=== PATIENT | male | born 1940 | race Caucasian/White ===

== ENCOUNTER 2020-05-04 19:46 | Inpatient (IN) | payer MEDICARE, OTHER ==
[~2020-05-04] VITALS: Ht 170.2 cm; Wt 79.4 kg
[~2020-05-04 19:46] MED LIST: AMOX TR-K CLV1 EAC4 PO; ATORVASTATIN CA10 MG PO; BUTALB-ACETAMI1 EAC1 PO; KEPPRA 500 MG500 MG PO; LOPRESSOR 25 MG25 MG PO; MYCOSTATIN100000 UTS PO; NITRO-TIME2.5 MG PO; NORCO 5-325 TA1 EACH PO; PEPCID40 MG PO
[2020-05-04 20:16] LABS: HEMOGLOBIN 12.2 gm/dl (14.0-17.5); WHITE BLOOD COUNT 5.3 K/UL (4.5-11.0)
[2020-05-04 20:31] LABS: BUN/CREATININE RATIO 19 (0-10)
[2020-05-04] MEDS ORDERED: MYCOSTATIN100000 UTS PO (23:27)
[2020-05-05 08:28] LABS: WHITE BLOOD COUNT 4.2 K/UL (4.5-11.0)
[2020-05-05 08:33] LABS: RED BLOOD COUNT 3.17 M/UL (4.20-5.50)
[2020-05-05 08:34] LABS: HEMOGLOBIN 9.7 gm/dl (14.0-17.5)
[2020-05-05 08:53] LABS: BUN/CREATININE RATIO 18 (0-10)
[2020-05-06 06:36] LABS: BUN/CREATININE RATIO 20 (0-10)
[2020-05-06 06:40] LABS: RED BLOOD COUNT 3.02 M/UL (4.20-5.50); WHITE BLOOD COUNT 4.7 K/UL (4.5-11.0)
[2020-05-07 03:24] LABS: HEMOGLOBIN 9.4 gm/dl (14.0-17.5); RED BLOOD COUNT 2.98 M/UL (4.20-5.50)
[2020-05-07 03:45] LABS: BUN/CREATININE RATIO 21 (0-10)
[2020-05-07 18:26] LABS: BORDETELLA PARAPERTUSSIS Not Detected (Not Detectd); BORDETELLA PERTUSSIS Not Detected (Not Detectd); CHLAMYDIA PNEUMONIAE Not Detected (Not Detectd); CORONAVIRUS HKU1 Not Detected (Not Detectd); CORONAVIRUS NL63 Not Detected (Not Detectd); CORONAVIRUS OC43 Not Detected (Not Detectd); CORONOAVIRUS 229E Not Detected (Not Detectd); HUMAN METAPNEUMOVIRUS Not Detected (Not Detectd); HUMAN RHINOVIRUS/ENTEROVIRUS Not Detected (Not Detectd); INFLUENZA A Not Detected (Not Detectd); INFLUENZA B Not Detected (Not Detectd); MYCOPLASMA PNEUMONIAE Not Detected (Not Detectd); PARAINFLUENZA VIRUS 1 Not Detected (Not Detectd); PARAINFLUENZA VIRUS 2 Not Detected (Not Detectd); PARAINFLUENZA VIRUS 3 Not Detected (Not Detectd); PARAINFLUENZA VIRUS 4 Not Detected (Not Detectd); RESPIRATORY SYNCYTIAL VIRUS Not Detected (Not Detectd)
[2020-05-07 20:33] LABS: SARS-CoV-2 NOT DETECTED (Not Detectd)
[2020-05-09 04:18] LABS: HEMOGLOBIN 10.1 gm/dl (14.0-17.5)
[2020-05-09 04:19] LABS: RED BLOOD COUNT 3.36 M/UL (4.20-5.50); WHITE BLOOD COUNT 6.7 K/UL (4.5-11.0)
[2020-05-09 04:45] LABS: BUN/CREATININE RATIO 21 (0-10)
[2020-05-10 03:29] LABS: RED BLOOD COUNT 3.27 M/UL (4.20-5.50); WHITE BLOOD COUNT 7.1 K/UL (4.5-11.0)
[2020-05-10 03:53] LABS: BUN/CREATININE RATIO 23 (0-10)
[2020-05-11 03:59] LABS: HEMOGLOBIN 10.1 gm/dl (14.0-17.5); RED BLOOD COUNT 3.19 M/UL (4.20-5.50); WHITE BLOOD COUNT 6.6 K/UL (4.5-11.0)
[2020-05-11 04:23] LABS: BUN/CREATININE RATIO 21 (0-10)
[2020-05-12 01:54] LABS: HEMOGLOBIN 9.3 gm/dl (14.0-17.5); RED BLOOD COUNT 3.03 M/UL (4.20-5.50); WHITE BLOOD COUNT 6.8 K/UL (4.5-11.0)
[2020-05-12 02:12] LABS: BUN/CREATININE RATIO 21 (0-10)
[2020-05-12] MEDS ORDERED: METRONIDAZOLE250 MG PO (14:52)
[2020-05-12] MEDS ORDERED: AZITHROMYCIN250 MG PO (14:52)
[2020-05-12] MEDS ORDERED: ASPIRIN EC81 MG PO (14:52)
[2020-05-12] MEDS ORDERED: LOPRESSOR 25 MG25 MG PO (14:52)
[2020-05-12] MEDS ORDERED: NITRO-TIME2.5 MG PO (15:09)
--- NOTE | 2020-05-12 16:56 | NUR ---
1653: PATIENTS SON HAS SIGNED ALL PAPER WORK FOR ADMISSION TO [facility]. RN NOTIFIED [facility] FOR TRANSPORT TO FACILITY. PATIENTS CLOTHIG WAS FOUND AND GIVEN TO PATIENTS SON BY [employer], NEEMA.
== END 2020-05-12 18:11 | DRG 871 ==
LOC: ER1 19:46 → CDU 23:14 → MED SURG 4 23:14
PROVIDERS: Internal Medicine; Internal Medicine Infectious Disease; Physician Assistant; ADMIT Internal Medicine
DX: A41.9 Sepsis, unspecified organism (principal); J96.01 Acute respiratory failure with hypoxia; D61.818 Other pancytopenia; E87.1 Hypo-osmolality and hyponatremia; J98.11 Atelectasis; M84.68XA Pathological fracture in other disease, other site, initial encounter for fracture; Z20.822 Contact with and (suspected) exposure to COVID-19; I10 Essential (primary) hypertension; M41.9 Scoliosis, unspecified; I25.10 Atherosclerotic heart disease of native coronary artery without angina pectoris; Z20.828 Contact with and (suspected) exposure to other viral communicable diseases; E78.5 Hyperlipidemia, unspecified; K21.9 Gastro-esophageal reflux disease without esophagitis; H91.90 Unspecified hearing loss, unspecified ear; Z88.1 Allergy status to other antibiotic agents; Z88.0 Allergy status to penicillin; Z88.8 Allergy status to other drugs, medicaments and biological substances; Z87.891 Personal history of nicotine dependence; Z95.5 Presence of coronary angioplasty implant and graft; E87.6 Hypokalemia; D64.9 Anemia, unspecified; R73.9 Hyperglycemia, unspecified; D69.6 Thrombocytopenia, unspecified; M48.16 Ankylosing hyperostosis [Forestier], lumbar region; R53.81 Other malaise; M48.14 Ankylosing hyperostosis [Forestier], thoracic region
CPT/HCPCS: 36415; 51702; 70450; 71045; 71046; 72128; 72131; 80048; 80053; 81001; 82550; 82553; 82607; 82803; 82962; 83605; 83735; 83874; 83880; 84484; 85025; 85027; 86140; 87040; 87081; 87086; 87633; 93005; 96365; 97116; 97116-GP-CQ; 97162; 97530; 97530-GP-CQ; 99285; G0378; J1650; J1956; J7030; Q9967; U0002

== ENCOUNTER 2020-08-31 16:38 | Emergency (ER) | payer MEDICARE, OTHER ==
[~2020-08-31 16:38] MED LIST changes: +ASPIRIN EC81 MG PO; +AZITHROMYCIN250 MG PO; +METRONIDAZOLE250 MG PO
[2020-08-31 18:01] LABS: HEMOGLOBIN 12.4 gm/dl (14.0-17.5); RED BLOOD COUNT 3.97 M/UL (4.20-5.50); WHITE BLOOD COUNT 4.2 K/UL (4.5-11.0)
[2020-08-31 18:24] LABS: BUN/CREATININE RATIO 25 (0-10)
== END 2020-08-31 21:42 | disposition home or self-care (01) ==
LOC: ER1 16:38
PROVIDERS: Physician Assistant
DX: S32.019A Unspecified fracture of first lumbar vertebra, initial encounter for closed fracture (principal); S32.029A Unspecified fracture of second lumbar vertebra, initial encounter for closed fracture; S22.089A Unspecified fracture of T11-T12 vertebra, initial encounter for closed fracture; I11.9 Hypertensive heart disease without heart failure; W06.XXXA Fall from bed, initial encounter; Y92.009 Unspecified place in unspecified non-institutional (private) residence as the place of occurrence of the external cause
CPT/HCPCS: 72131; 80053; 82550; 82553; 85025; 99284

== ENCOUNTER 2020-09-05 13:55 | Inpatient (IN) | payer MEDICARE, OTHER ==
[~2020-09-05] VITALS: Ht 172.7 cm; Wt 72.6 kg
[2020-09-05 14:34] LABS: HEMOGLOBIN 11.4 gm/dl (14.0-17.5); RED BLOOD COUNT 3.73 M/UL (4.20-5.50); WHITE BLOOD COUNT 4.5 K/UL (4.5-11.0)
[2020-09-05 15:10] LABS: BUN/CREATININE RATIO 20 (0-10)
[2020-09-05] MEDS ORDERED: BASAGLAR K100 UNIT/1 SQ (20:03)
[2020-09-05] MEDS ORDERED: AMLODIPINE BES2.5 MG PO (20:06)
[2020-09-05] MEDS ORDERED: LOPRESSOR 25 MG25 MG PO (20:07)
[2020-09-05] MEDS ORDERED: TRAMADOL HCL50 MG PO (20:07)
[2020-09-05] MEDS ORDERED: NITRO-TIME2.5 MG PO (20:08)
[2020-09-06 02:42] LABS: WHITE BLOOD COUNT 4.8 K/UL (4.5-11.0)
[2020-09-06 02:51] LABS: RED BLOOD COUNT 3.29 M/UL (4.20-5.50)
[2020-09-06 03:04] LABS: BUN/CREATININE RATIO 21 (0-10)
[2020-09-07 03:38] LABS: HEMOGLOBIN 10.1 gm/dl (14.0-17.5); RED BLOOD COUNT 3.31 M/UL (4.20-5.50)
[2020-09-07 03:39] LABS: WHITE BLOOD COUNT 6.7 K/UL (4.5-11.0)
[2020-09-07 04:05] LABS: BUN/CREATININE RATIO 20 (0-10)
[2020-09-08 05:59] LABS: HEMOGLOBIN 9.3 gm/dl (14.0-17.5); RED BLOOD COUNT 3.13 M/UL (4.20-5.50); WHITE BLOOD COUNT 4.4 K/UL (4.5-11.0)
[2020-09-08 06:31] LABS: BUN/CREATININE RATIO 15 (0-10)
[2020-09-09 04:23] LABS: HEMOGLOBIN 8.8 gm/dl (14.0-17.5); RED BLOOD COUNT 2.9 M/UL (4.20-5.50)
[2020-09-09 04:25] LABS: BUN/CREATININE RATIO 14 (0-10)
[2020-09-10 04:33] LABS: HEMOGLOBIN 9.5 gm/dl (14.0-17.5); RED BLOOD COUNT 3.14 M/UL (4.20-5.50); WHITE BLOOD COUNT 4.8 K/UL (4.5-11.0)
[2020-09-10 05:28] LABS: BUN/CREATININE RATIO 17 (0-10)
[2020-09-14] MEDS ORDERED: TRAMADOL HCL50 MG PO (09:24)
[2020-09-14] MEDS ORDERED: DONEPEZIL HCL5 MG PO (09:24)
== END 2020-09-14 16:15 | DRG 552 ==
LOC: ER1 13:55 → CDU 18:13 → M/S 22:16
PROVIDERS: Physician Assistant Medical; Student in an Organized Health Care Education/Training Program; ADMIT Family Medicine
PROC: B24BZZZ Ultrasonography of Heart with Aorta (ICD-10-PCS; principal; 2020-09-07)
DX: S22.088A Other fracture of T11-T12 vertebra, initial encounter for closed fracture (principal); S32.028A Other fracture of second lumbar vertebra, initial encounter for closed fracture; S32.018A Other fracture of first lumbar vertebra, initial encounter for closed fracture; E87.2 Acidosis; Z91.81 History of falling; F01.50 Vascular dementia, unspecified severity, without behavioral disturbance, psychotic disturbance, mood disturbance, and anxiety; H91.90 Unspecified hearing loss, unspecified ear; E78.5 Hyperlipidemia, unspecified; I10 Essential (primary) hypertension; M51.36 Other intervertebral disc degeneration, lumbar region; M51.34 Other intervertebral disc degeneration, thoracic region; Z20.822 Contact with and (suspected) exposure to COVID-19; E11.65 Type 2 diabetes mellitus with hyperglycemia; E11.649 Type 2 diabetes mellitus with hypoglycemia without coma; R53.81 Other malaise; E86.0 Dehydration; D64.9 Anemia, unspecified; E87.6 Hypokalemia; K21.9 Gastro-esophageal reflux disease without esophagitis; I25.10 Atherosclerotic heart disease of native coronary artery without angina pectoris; Z95.5 Presence of coronary angioplasty implant and graft; Z86.011 Personal history of benign neoplasm of the brain; Z88.1 Allergy status to other antibiotic agents; Z88.0 Allergy status to penicillin; Z88.8 Allergy status to other drugs, medicaments and biological substances; Z87.891 Personal history of nicotine dependence; Z79.82 Long term (current) use of aspirin; Z79.4 Long term (current) use of insulin; Z79.899 Other long term (current) drug therapy
CPT/HCPCS: ECHO; 0240U; 36415; 70450; 71045; 72125; 72128; 72131; 72146; 72148; 80048; 80053; 81001; 82550; 82553; 82962; 83036; 83605; 83690; 83735; 83874; 83880; 84100; 84132; 84484; 85007; 85025; 85027; 85610; 85652; 85730; 86140; 93005; 93306; 96372; 97110; 97110-GP-CQ; 97116-GP-CQ; 97163; 97167; 97530-GP-CQ; 99285; G0378; J1650; J3475; Q9965; U0002

== ENCOUNTER 2020-11-23 14:32 | Emergency (ER) | payer MEDICARE, OTHER ==
[~2020-11-23 14:32] MED LIST changes: +AMLODIPINE BES2.5 MG PO; +BASAGLAR K100 UNIT/1 SQ; +DONEPEZIL HCL5 MG PO; +TRAMADOL HCL50 MG PO
[2020-11-23 17:08] LABS: HEMOGLOBIN 12.7 gm/dl (14.0-17.5); RED BLOOD COUNT 4.1 M/UL (4.20-5.50); WHITE BLOOD COUNT 6.1 K/UL (4.5-11.0)
[2020-11-23] MEDS ORDERED: ZOFRAN4 MG PO (20:04)
== END 2020-11-23 20:15 | disposition home or self-care (01) ==
LOC: ER1 14:32
PROVIDERS: Preventive Medicine Occupational Medicine
DX: E86.0 Dehydration (principal); R11.2 Nausea with vomiting, unspecified; M25.552 Pain in left hip; G89.29 Other chronic pain; I25.10 Atherosclerotic heart disease of native coronary artery without angina pectoris; I10 Essential (primary) hypertension
CPT/HCPCS: 80053; 81001; 85025; 85652; 86140; 87086; 96374; 99284; J2405; Q9967

== ENCOUNTER 2021-01-08 11:47 | Emergency (ER) | payer MEDICARE, OTHER ==
[~2021-01-08 11:47] MED LIST changes: +ZOFRAN4 MG PO
[2021-01-08 14:57] LABS: HEMOGLOBIN 9.9 gm/dl (14.0-17.5); RED BLOOD COUNT 3.62 M/UL (4.20-5.50); WHITE BLOOD COUNT 7.7 K/UL (4.5-11.0)
[2021-01-08 15:15] LABS: BUN/CREATININE RATIO 17 (0-10)
[2021-01-08] MEDS ORDERED: HYDROCODON-ACE1 EAC2 PO (16:40)
== END 2021-01-08 17:46 | disposition home or self-care (01) ==
LOC: ER1 11:47
PROVIDERS: Physician Assistant
DX: M54.5 Low back pain (principal); G89.29 Other chronic pain; M48.56XA Collapsed vertebra, not elsewhere classified, lumbar region, initial encounter for fracture; I25.10 Atherosclerotic heart disease of native coronary artery without angina pectoris; E11.9 Type 2 diabetes mellitus without complications; I10 Essential (primary) hypertension; K21.9 Gastro-esophageal reflux disease without esophagitis; Z88.0 Allergy status to penicillin; Z88.8 Allergy status to other drugs, medicaments and biological substances; Z79.82 Long term (current) use of aspirin; Z79.899 Other long term (current) drug therapy
CPT/HCPCS: 72131; 80053; 81001; 82550; 82553; 83605; 83874; 84484; 85025; 93005; 99284

== ENCOUNTER → 2021-01-22 | Outpatient (CLI) | payer MEDICARE, OTHER ==
[~2021-01-22] MED LIST changes: +HYDROCODON-ACE1 EAC2 PO
== END ==
LOC: EMI 14:00
DX: R93.0 Abnormal findings on diagnostic imaging of skull and head, not elsewhere classified (principal); G31.89 Other specified degenerative diseases of nervous system; R90.82 White matter disease, unspecified
CPT/HCPCS: 70553; A9577

== ENCOUNTER → 2021-02-08 | Outpatient (CLI) | payer MEDICARE, OTHER | LOC: WCC 08:33 | DX: L97.812 Non-pressure chronic ulcer of other part of right lower leg with fat layer exposed (principal); I10 Essential (primary) hypertension; I25.10 Atherosclerotic heart disease of native coronary artery without angina pectoris; F02.80 Dementia in other diseases classified elsewhere, unspecified severity, without behavioral disturbance, psychotic disturbance, mood disturbance, and anxiety; D50.9 Iron deficiency anemia, unspecified | CPT/HCPCS: 87070; 87205 ==

== ENCOUNTER 2021-02-15 12:44 | Inpatient (IN) | payer MEDICARE, OTHER ==
[~2021-02-15] VITALS: Ht 170.2 cm; Wt 56.9 kg
[~2021-02-15 12:44] MED LIST changes: -AMLODIPINE BES2.5 MG PO; -ATORVASTATIN CA10 MG PO; -PEPCID40 MG PO
[2021-02-15 13:32] LABS: RED BLOOD COUNT 3.63 M/UL (4.20-5.50); WHITE BLOOD COUNT 6.9 K/UL (4.5-11.0)
[2021-02-15 13:53] LABS: BUN/CREATININE RATIO 23 (0-10)
[2021-02-15 19:03] LABS: MONONUCLEAR CELLS 23 (75-100); POLYMORPHONUCLEAR % 77 (0-25); RBC (AUTOMATED) 1600 (0-2000); WBC (AUTOMATED) 9251 (0-200)
[2021-02-16 07:53] LABS: BUN/CREATININE RATIO 26 (0-10)
[2021-02-16] MEDS ORDERED: MEGESTROL400 MG/11 PO (19:48)
[2021-02-16] MEDS ORDERED: FERROUS SULFAT324 MG PO (19:49)
[2021-02-16] MEDS ORDERED: MUPIROCIN22 GM TP (19:50)
[2021-02-16] MEDS ORDERED: ASCORBIC ACID500 MG PO (19:51)
[2021-02-16] MEDS ORDERED: HYDROXYZINE PAM25 MG PO (19:51)
[2021-02-16] MEDS ORDERED: AMLODIPINE BES2.5 MG PO (20:06)
[2021-02-16] MEDS ORDERED: ATORVASTATIN CA10 MG PO (21:36)
[2021-02-16] MEDS ORDERED: PEPCID40 MG PO (21:41)
[2021-02-17 06:11] LABS: BUN/CREATININE RATIO 22 (0-10)
[2021-02-18 07:55] LABS: HEMOGLOBIN 8.4 gm/dl (14.0-17.5); WHITE BLOOD COUNT 6.4 K/UL (4.5-11.0)
[2021-02-18 08:04] LABS: RED BLOOD COUNT 3.1 M/UL (4.20-5.50)
[2021-02-18 08:29] LABS: BUN/CREATININE RATIO 17 (0-10)
[2021-02-19 05:36] LABS: BUN/CREATININE RATIO 15 (0-10)
[2021-02-19 11:28] LABS: RED BLOOD COUNT 3.2 M/UL (4.20-5.50); WHITE BLOOD COUNT 6.8 K/UL (4.5-11.0)
[2021-02-19] MEDS ORDERED: TYLENOL 8 HOUR650 MG PO (11:29)
[2021-02-19] MEDS ORDERED: FERROUS SULFAT324 MG PO (11:32)
== END 2021-02-19 18:00 | disposition home health service (06) | DRG 553 ==
LOC: ER1 12:44 → M/S 20:10 → CDU 20:10 → M/S 02-16 01:58
PROVIDERS: Internal Medicine; Physician Assistant; Physician Assistant Medical; ADMIT Internal Medicine Infectious Disease
DX: M17.12 Unilateral primary osteoarthritis, left knee (principal); E43 Unspecified severe protein-calorie malnutrition; N17.9 Acute kidney failure, unspecified; Z68.1 Body mass index [BMI] 19.9 or less, adult; M25.462 Effusion, left knee; D50.9 Iron deficiency anemia, unspecified; F01.50 Vascular dementia, unspecified severity, without behavioral disturbance, psychotic disturbance, mood disturbance, and anxiety; Z23 Encounter for immunization; Z20.822 Contact with and (suspected) exposure to COVID-19; I25.10 Atherosclerotic heart disease of native coronary artery without angina pectoris; E11.9 Type 2 diabetes mellitus without complications; E87.6 Hypokalemia; R29.6 Repeated falls; K21.9 Gastro-esophageal reflux disease without esophagitis; H91.90 Unspecified hearing loss, unspecified ear; W01.0XXA Fall on same level from slipping, tripping and stumbling without subsequent striking against object, initial encounter; E78.5 Hyperlipidemia, unspecified; I10 Essential (primary) hypertension; Z95.1 Presence of aortocoronary bypass graft; Z86.73 Personal history of transient ischemic attack (TIA), and cerebral infarction without residual deficits; Z95.5 Presence of coronary angioplasty implant and graft; Z98.890 Other specified postprocedural states; Z88.0 Allergy status to penicillin; Z88.8 Allergy status to other drugs, medicaments and biological substances
CPT/HCPCS: 36415; 73564; 80048; 80053; 80061; 80202; 82550; 82553; 82607; 82746; 82962; 83036; 83540; 83550; 83605; 83735; 83874; 84100; 84484; 84550; 85025; 85027; 85045; 85652; 86140; 87040; 87070; 87205; 90686; 93005; 96365; 97116-GP-CQ; 97161; 97167; 97530; 97530-GP-CQ; 99285; G0008; G0378; J1650; J1956; J3370; J3480; J3486; J7050; J7070; Q9967; U0002

== ENCOUNTER → 2021-02-22 | Outpatient (CLI) | payer MEDICARE, OTHER ==
[~2021-02-22] MED LIST changes: +AMLODIPINE BES2.5 MG PO; +ASCORBIC ACID500 MG PO; +ATORVASTATIN CA10 MG PO; +FERROUS SULFAT324 MG PO; +HYDROXYZINE PAM25 MG PO; +MEGESTROL400 MG/11 PO; +MUPIROCIN22 GM TP; +PEPCID40 MG PO; +TYLENOL 8 HOUR650 MG PO
== END ==
LOC: WCC 13:30
DX: L97.812 Non-pressure chronic ulcer of other part of right lower leg with fat layer exposed (principal); L97.822 Non-pressure chronic ulcer of other part of left lower leg with fat layer exposed; I25.10 Atherosclerotic heart disease of native coronary artery without angina pectoris; I10 Essential (primary) hypertension; D50.9 Iron deficiency anemia, unspecified; F02.80 Dementia in other diseases classified elsewhere, unspecified severity, without behavioral disturbance, psychotic disturbance, mood disturbance, and anxiety; Z79.899 Other long term (current) drug therapy; Z88.0 Allergy status to penicillin

== ENCOUNTER 2021-03-02 11:39 | Emergency (ER) | payer MEDICARE, OTHER | END 2021-03-02 17:00 | disposition home or self-care (01) | LOC: ER1 11:39 | DX: S22.089A Unspecified fracture of T11-T12 vertebra, initial encounter for closed fracture (principal); M17.12 Unilateral primary osteoarthritis, left knee; I10 Essential (primary) hypertension; E78.5 Hyperlipidemia, unspecified; Z88.0 Allergy status to penicillin; W19.XXXA Unspecified fall, initial encounter | CPT/HCPCS: 72128; 72131; 73562; 93971; 99284 ==

== ENCOUNTER 2021-03-07 14:33 | Emergency (ER) | payer MEDICARE, OTHER ==
[2021-03-07 16:03] LABS: RED BLOOD COUNT 3.77 M/UL (4.20-5.50); WHITE BLOOD COUNT 7.8 K/UL (4.5-11.0)
== END 2021-03-07 18:29 | disposition home or self-care (01) ==
LOC: ER1 14:33
PROVIDERS: Nurse Practitioner
DX: R11.10 Vomiting, unspecified (principal); I11.9 Hypertensive heart disease without heart failure; E78.5 Hyperlipidemia, unspecified; Z20.822 Contact with and (suspected) exposure to COVID-19; Z95.5 Presence of coronary angioplasty implant and graft; Z87.891 Personal history of nicotine dependence; Z88.0 Allergy status to penicillin
CPT/HCPCS: 71045; 80053; 83880; 85025; 99283; U0002

== ENCOUNTER → 2021-03-21 | Day surgery (SDC) | payer MEDICARE, OTHER | END | disposition home or self-care (01) | LOC: OR 06:38 | DX: D50.0 Iron deficiency anemia secondary to blood loss (chronic) (principal); K52.9 Noninfective gastroenteritis and colitis, unspecified; K22.4 Dyskinesia of esophagus; K44.9 Diaphragmatic hernia without obstruction or gangrene; K57.30 Diverticulosis of large intestine without perforation or abscess without bleeding; K57.32 Diverticulitis of large intestine without perforation or abscess without bleeding; K64.1 Second degree hemorrhoids; K92.1 Melena; I25.10 Atherosclerotic heart disease of native coronary artery without angina pectoris; K21.9 Gastro-esophageal reflux disease without esophagitis; Z95.818 Presence of other cardiac implants and grafts; Z87.891 Personal history of nicotine dependence; Z88.0 Allergy status to penicillin; Z79.891 Long term (current) use of opiate analgesic; Z79.899 Other long term (current) drug therapy; Z88.1 Allergy status to other antibiotic agents; Z88.8 Allergy status to other drugs, medicaments and biological substances; Z79.82 Long term (current) use of aspirin | CPT/HCPCS: J2704; J7040 ==

== ENCOUNTER → 2021-04-16 | Outpatient (CLI) | payer MEDICARE, OTHER | LOC: CT 13:02 | DX: K56.699 Other intestinal obstruction unspecified as to partial versus complete obstruction (principal); K59.00 Constipation, unspecified; S22.088A Other fracture of T11-T12 vertebra, initial encounter for closed fracture | CPT/HCPCS: 36415; 82565; 84520; Q9967 ==

== ENCOUNTER → 2021-05-10 | Outpatient (CLI) | payer MEDICARE, OTHER | LOC: EXRD 05-07 10:00 | DX: I73.9 Peripheral vascular disease, unspecified (principal) | CPT/HCPCS: 93925 ==

== ENCOUNTER 2021-05-16 17:02 | Observation (INO) | payer MEDICARE, OTHER ==
[~2021-05-16] VITALS: Ht 167.6 cm; Wt 61.2 kg
[2021-05-16 17:49] LABS: HEMOGLOBIN 9.3 gm/dl (14.0-17.5); RED BLOOD COUNT 3.01 M/UL (4.20-5.50); WHITE BLOOD COUNT 5.9 K/UL (4.5-11.0)
[2021-05-18 09:57] LABS: HEMOGLOBIN 9.4 gm/dl (14.0-17.5); RED BLOOD COUNT 3.18 M/UL (4.20-5.50); WHITE BLOOD COUNT 3.9 K/UL (4.5-11.0)
[2021-05-19 07:30] LABS: HEMOGLOBIN 8.1 gm/dl (14.0-17.5); WHITE BLOOD COUNT 4.7 K/UL (4.5-11.0)
[2021-05-19 07:35] LABS: RED BLOOD COUNT 2.86 M/UL (4.20-5.50)
[2021-05-19] MEDS ORDERED: ZYVOX600 MG PO (11:54)
== END 2021-05-19 15:32 | disposition home health service (06) ==
LOC: ER1 17:02 → CDU 21:14 → 3 EAST 21:14 → CDU 21:14 → 3 EAST 05-17 14:36 → M/S 05-17 22:38
PROVIDERS: Physician Assistant; ADMIT Internal Medicine
DX: L02.416 Cutaneous abscess of left lower limb (principal); L03.116 Cellulitis of left lower limb; U07.1 COVID-19; M25.462 Effusion, left knee; N17.9 Acute kidney failure, unspecified; I25.10 Atherosclerotic heart disease of native coronary artery without angina pectoris; F01.50 Vascular dementia, unspecified severity, without behavioral disturbance, psychotic disturbance, mood disturbance, and anxiety; E78.5 Hyperlipidemia, unspecified; I10 Essential (primary) hypertension; K21.9 Gastro-esophageal reflux disease without esophagitis; H91.90 Unspecified hearing loss, unspecified ear; Z79.82 Long term (current) use of aspirin; Z79.899 Other long term (current) drug therapy; Z87.891 Personal history of nicotine dependence; Z88.0 Allergy status to penicillin; Z88.1 Allergy status to other antibiotic agents; Z95.5 Presence of coronary angioplasty implant and graft
CPT/HCPCS: 73564; 80048; 80053; 80202; 82962; 85025; 85652; 86140; 87040; 96365; 96366; 96375; 96376; 99283; A6212; G0378; J1650; J3370; J7030; J7070; U0002

== ENCOUNTER → 2021-06-07 | Outpatient (CLI) | payer MEDICARE, OTHER ==
[~2021-06-07] MED LIST changes: +ZYVOX600 MG PO
[2021-06-07 13:09] LABS: WHITE BLOOD COUNT 6.2 K/UL (4.5-11.0)
== END ==
LOC: LAB 12:27
PROVIDERS: Nurse Practitioner
DX: M70.52 Other bursitis of knee, left knee (principal)
CPT/HCPCS: 36415; 85048; 85652; 86140

== ENCOUNTER → 2021-06-25 | Outpatient (CLI) | payer MEDICARE, OTHER ==
[2021-06-25 14:31] LABS: HEMOGLOBIN 8.9 gm/dl (14.0-17.5); RED BLOOD COUNT 2.7 M/UL (4.20-5.50); WHITE BLOOD COUNT 6.4 K/UL (4.5-11.0)
[2021-06-25 14:50] LABS: BUN/CREATININE RATIO 22 (0-10)
== END ==
LOC: LBRF 14:02
PROVIDERS: Nurse Practitioner
DX: I10 Essential (primary) hypertension (principal); L03.116 Cellulitis of left lower limb; E11.9 Type 2 diabetes mellitus without complications; E43 Unspecified severe protein-calorie malnutrition
CPT/HCPCS: 80053; 83036; 85025

== ENCOUNTER → 2021-10-04 | Day surgery (SDC) | payer MEDICARE, OTHER ==
[~2021-10-04] MED LIST changes: +ARICEPT5 MG PO; +b12
[2021-10-04 10:13] LABS: HEMOGLOBIN 12.1 gm/dl (14.0-17.5); RED BLOOD COUNT 4.04 M/UL (4.20-5.50); WHITE BLOOD COUNT 6.5 K/UL (4.5-11.0)
== END | disposition home or self-care (01) ==
LOC: OR 09:43
PROVIDERS: Orthopaedic Surgery
DX: S81.002A Unspecified open wound, left knee, initial encounter (principal); I25.10 Atherosclerotic heart disease of native coronary artery without angina pectoris; I10 Essential (primary) hypertension; E78.5 Hyperlipidemia, unspecified; K21.9 Gastro-esophageal reflux disease without esophagitis; E11.9 Type 2 diabetes mellitus without complications; Z95.5 Presence of coronary angioplasty implant and graft; Z88.0 Allergy status to penicillin; Z88.1 Allergy status to other antibiotic agents; Z88.8 Allergy status to other drugs, medicaments and biological substances; Z79.82 Long term (current) use of aspirin; Z79.899 Other long term (current) drug therapy; X58.XXXA Exposure to other specified factors, initial encounter
CPT/HCPCS: 36415; 80048; 85027; 93005; J0690; J1885; J2704; J3010; J3370; J7120